=== PATIENT | female | born 1970 | race Caucasian/White ===

== ENCOUNTER 2019-01-21 12:45 | Outpatient (REF) | payer MEDICAID, SELFPAY ==
[2019-01-21 21:20] LABS: Abs Immature Grans 0.02 k/cumm (0.0-0.09); Absolute Basophil Count 0.04 k/cumm (0.0-0.2); Absolute Eosinophil Count 0.15 k/cumm (0.0-0.7); Absolute Lymphocyte Count 1.52 k/cumm (1.2-3.4); Absolute Monocyte Count 0.37 k/cumm (0.11-0.7); Absolute Neutrophil Count 4.83 k/cumm (1.2-6.7); Basophils % 0.6; Eosinophils % 2.2; HCT 44.5 % (36.0-46.0); HGB 14.9 g/dL (12.0-15.5); Immature Grans % 0.3; Lymphocytes % 21.9; Mean Corp. HGB Concentration 33.5 g/dL (32.0-36.0); Mean Corpuscular Hemoglobin 28.7 pg (27.0-33.0); Mean Corpuscular Volume 85.6 fL (80-95); Mean Platelet Volume 11.8 fL (8.0-11.0); Monocytes % 5.3; Neutrophils % 69.7; Platelet Count 246 x1000/uL (130-400); RBC Distribution Width 14.9 % (11.7-14.6); White Blood Cell Count 6.93 k/cumm (4.4-10.8)
[2019-01-21 21:30] LABS: Iron 64 ug/dL (50-175); Total Iron Binding Capacity 293 ug/dL (250-450); Transferrin Sat 22 % (15-50)
[2019-01-21 21:57] LABS: ESR 10 mm/hr (0-20)
[2019-01-21 21:59] LABS: Anion Gap 10.7 mmol/L (3-11); BUN 7 mg/dL (7-18); CO2 28.3 mmol/L (21.0-32.0); CREATININE 0.92 mg/dL (0.55-1.02); Calcium 9.2 mg/dL (8.5-10.1); Chloride 102 mmol/L (98-107); Glucose 131 mg/dL (70-100); Magnesium 1.8 mg/dL (1.8-2.4); Potassium 3.8 mmol/L (3.5-5.1); Sodium 141 mmol/L (136-145); TSH (W/Ref FT4) 1.24 uIU/mL (0.36-3.74); Vitamin B12 344 pg/mL (193-986)
[2019-01-21 22:42] LABS: C-Reactive Protein 1.18 mg/dL (0.0-0.3); Creatine Kinase 68 U/L (26-192)
[2019-01-24 12:16] LABS: Rheumatoid Factor 8 IU/mL (<12.5)
[2019-01-24 15:43] LABS: ANA Interpretation Positive (NEGAT); ANA Titer Pattern 1:320 Speckled
== END 2019-01-21 13:05 ==
LOC: NCHCN 12:45
PROVIDERS: PCP Family Medicine; Visit Provider Nurse Practitioner Family
DX: R51 Headache (principal); M54.9 Dorsalgia, unspecified; K30 Functional dyspepsia; M25.50 Pain in unspecified joint; R53.83 Other fatigue; R25.2 Cramp and spasm; J44.9 Chronic obstructive pulmonary disease, unspecified; F17.200 Nicotine dependence, unspecified, uncomplicated
CPT/HCPCS: 80048; 82550; 85652; 82607; 83540; 83550; 83735; 84443; 85025; 86038; 86140; 86431

== ENCOUNTER 2019-02-04 13:51 | Outpatient (REF) | payer MEDICAID, SELFPAY ==
[2019-02-04 21:19] LABS: Hemoglobin A1C 5.6 % (4.5-6.2)
[2019-02-08 10:33] LABS: SS-B (La) Ab, IgG 3.4 Units (<20)
[2019-02-08 10:40] LABS: SS-A Antibody 1.8 Units (<20)
[2019-02-08 11:07] LABS: dsDNA Ab, IgG <12.3 IU/mL (<30)
[2019-02-08 12:10] LABS: RNP Ab, IgG 3.2 Units (<20); Sm (Smith) Ab, IgG 1.6 Units (<20)
== END 2019-02-04 14:11 ==
LOC: NCHCN 13:51
PROVIDERS: PCP Family Medicine; Visit Provider Nurse Practitioner Family
DX: F32.9 Major depressive disorder, single episode, unspecified (principal); R76.0 Raised antibody titer; R51 Headache; K30 Functional dyspepsia; J44.9 Chronic obstructive pulmonary disease, unspecified; F17.200 Nicotine dependence, unspecified, uncomplicated; M54.9 Dorsalgia, unspecified; M25.50 Pain in unspecified joint
CPT/HCPCS: 83036; 86225; 86235

== ENCOUNTER 2019-03-21 00:12 | Outpatient (CLI) | payer MEDICAID, SELFPAY ==
--- NOTE | 2019-03-21 08:00 | PFT_ITS ---
DATE: MARCH 21, 2019 REQUESTING PROVIDER: Johanna Cartagena N.P. INTERPRETATION: SPIROMETRY: Spirometry shows mild obstructive airways disease with no significant bronchodilator response. LUNG VOLUMES: Lung volumes show no evidence of restriction. DIFFUSION CAPACITY: Mildly reduced even when corrected to alveolar volume. AIRWAY RESISTANCE: Elevated. IMPRESSION: Mild obstructive airways disease with no significant bronchodilator response. This is associated with mild diffusion defect. Clinical correlation recommended.
[2019-03-21] MEDS: Albuterol HFA 18 GM 200 PUFF INH IH (13:56)
[2019-03-21] MEDS: Inhaler, Assist Device 1 EACH MC (13:56)
== END 2019-03-21 00:32 ==
PROVIDERS: PCP Nurse Practitioner Family; Visit Provider Nurse Practitioner Family
DX: J44.9 Chronic obstructive pulmonary disease, unspecified (principal); J45.909 Unspecified asthma, uncomplicated; F17.210 Nicotine dependence, cigarettes, uncomplicated
CPT/HCPCS: 94060; 94150; 94726; 94729

== ENCOUNTER 2019-05-19 12:41 | Outpatient (REF) | payer MEDICAID, SELFPAY ==
--- NOTE | 2019-05-19 11:45 | PAPFT_PTH ---
PATIENT: Jud Roberson LOC: [facility] / [facility] U#:[id number] AGE/SX: 48/F ROOM: RE05/19/[address]: Alicia Page : 1970 BED: DIS: 05/19/2019 SPEC #: [id number] RECD: 05/20/19 16:26 STATUS: NATALEE REQ #: [id number] DAINA: 05/19/19 11:[address]: Alicia Page DEPT: [facility] Cytology RECD BY: Suzie Mast ENTERED: 05/20/19 16:27 SP TYPE: PAPFT OTHR DR: Johanna Cartagena Tissues: 1 - CX/ENDOCX FOR PAP SMEARS Procedures: PAP THIN PREP/[facility] Screening HPV DNA PROBE Comments: [id number]
== END 2019-05-19 13:01 ==
LOC: NCHCN 12:41
PROVIDERS: PCP Nurse Practitioner Family; Visit Provider Family Medicine
DX: Z12.4 Encounter for screening for malignant neoplasm of cervix (principal); Z01.419 Encounter for gynecological examination (general) (routine) without abnormal findings
CPT/HCPCS: 88142; 87624

== ENCOUNTER 2019-11-22 01:16 | Outpatient (CLI) | payer MEDICAID, SELFPAY ==
--- NOTE | 2019-11-22 09:30 | DI.RAD_ITS ---
EXAM: XR FOOT LT COMPLETE CLINICAL HISTORY: JOINT PAIN,M25.50,ELEVATED RAVEN TITER,R76.0. TECHNIQUE: 2D digital imaging was performed. COMPARISON: No exams were available for comparison FINDINGS: BONES: No acute fracture is present. No bony destructive lesion is seen. There is a small plantar cholo caneal spur. Small enthesophyte is seen at the Achilles insertion site. JOINTS: No dislocation present. The joint spaces are unremarkable. SOFT TISSUE: Normal. IMPRESSION: Unremarkable radiographs of the left foot. DATA REPOSITORY: RADIATION DOSE DELIVERED:
--- NOTE | 2019-11-22 09:40 | DI.RAD_ITS ---
EXAM: XR HAND LT COMPLETE CLINICAL HISTORY: JOINT, PAIN, M25.50,ELEVATED RAVEN TITER, R76.0. TECHNIQUE: 2D digital imaging was performed. COMPARISON: No exams were available for comparison FINDINGS: BONES: No acute fracture is present. No bony destructive lesion is seen. JOINTS: No dislocation present. Unremarkable SOFT TISSUE: Normal. IMPRESSION: Unremarkable radiographs of the left hand. DATA REPOSITORY: RADIATION DOSE DELIVERED:
--- NOTE | 2019-11-22 09:40 | DI.RAD_ITS ---
EXAM: XR FOOT RT COMPLETE CLINICAL HISTORY: JOINT PAIN,M25.50,ELEVATED RAVEN TITER,R76.0. TECHNIQUE: 2D digital imaging was performed. COMPARISON: No exams were available for comparison FINDINGS: BONES: No acute fracture is present. No bony destructive lesion is seen. Hypertrophic changes are se en at the talonavicular joint. The joint spaces are otherwise unremarkable. There is a large spur a t the plantar surface of the calcaneus. JOINTS: No dislocation present. SOFT TISSUE: Normal. IMPRESSION: Mild degenerative changes of the foot. DATA REPOSITORY: RADIATION DOSE DELIVERED:
--- NOTE | 2019-11-22 09:41 | DI.RAD_ITS ---
EXAM: XR HAND RT COMPLETE CLINICAL HISTORY: JOINT PAIN,M25.50, ELEVATED RAVEN TITER,R76.0. TECHNIQUE: 2D digital imaging was performed. COMPARISON: No exams were available for comparison FINDINGS: BONES: No acute fracture is present. No bony destructive lesion is seen. JOINTS: No dislocation present. Unremarkable. SOFT TISSUE: Normal. The patient was unable to remove the jewelry. IMPRESSION: Unremarkable radiographs of the right hand. DATA REPOSITORY: RADIATION DOSE DELIVERED:
== END 2019-11-22 01:36 ==
PROVIDERS: PCP Family Medicine; Visit Provider Family Medicine
DX: M25.541 Pain in joints of right hand (principal); R76.0 Raised antibody titer; M25.542 Pain in joints of left hand; M19.071 Primary osteoarthritis, right ankle and foot; M25.572 Pain in left ankle and joints of left foot
CPT/HCPCS: 73130; 73630

== ENCOUNTER 2019-11-22 01:17 | Outpatient (CLI) | payer MEDICAID, SELFPAY ==
--- NOTE | 2019-11-22 09:29 | DI.RAD_ITS ---
EXAM: XR CHEST 2V PA LATERAL CLINICAL HISTORY: ASTHMA,J45.909 TECHNIQUE: 2D digital imaging was performed. COMPARISON: No exams were available for comparison FINDINGS: MEDIASTINUM: Normal. HEART: Normal. PULMONARY VASCULATURE: Normal. LUNGS: Clear. Moderately hyperinflated with flattened diaphragms suggesting COPD. PLEURAL SPACE: No pleural effusion or pneumothorax. BONE:Within normal limits for the patient's age. OTHER FINDINGS:Normal. IMPRESSION: Findings suggestive of COPD. DATA REPOSITORY: RADIATION DOSE DELIVERED:
== END 2019-11-22 01:37 ==
PROVIDERS: PCP Family Medicine; Visit Provider Internal Medicine
DX: J45.909 Unspecified asthma, uncomplicated (principal)
CPT/HCPCS: 71046

== ENCOUNTER 2020-08-08 16:58 | Outpatient (REF) | payer MEDICAID, SELFPAY ==
[2020-08-08 13:42] LABS: HCT 41.3 % (36.0-46.0); HGB 13.5 g/dL (11.2-15.7); MCH 27.8 pg (27.0-33.0); MCHC 32.7 % (32.0-36.0); MPV 11.6 fL (8.0-11.0); Platelet Count 248 10^3/uL (130-400); RBC 4.86 10^6/uL (3.93-5.22); RDW 15.6 % (11.7-14.6); RDW-SD 47.8 fL; WBC 8.15 10^3/uL (4.4-10.8)
[2020-08-08 13:55] LABS: ALT 26 U/L (14-59); AST 12 U/L (15-37); Albumin 3.6 g/dL (3.4-5.0); Alkaline Phosphatase 98 U/L (46-116); Anion Gap 10.5 mmol/L (3-11); BUN 18 mg/dL (7-18); Bilirubin, Total 0.3 mg/dL (0.2-1.0); CO2 24.5 mmol/L (21.0-32.0); CREATININE 0.9 mg/dL (0.55-1.02); Calcium 8.9 mg/dL (8.5-10.1); Calculated LDL 156 mg/dL (<100); Chloride 108 mmol/L (98-107); Cholesterol 226 mg/dL (<200); Glucose 90 mg/dL (74-106); HDL Cholesterol 37 mg/dL (40-60); Potassium 3.8 mmol/L (3.5-5.1); Sodium 143 mmol/L (136-145); Total Protein 7.1 g/dL (6.4-8.2); Triglyceride 169 mg/dL (<150)
[2020-08-09 04:21] LABS: Vitamin D 25 Total 12.8 ng/mL (30-100)
== END 2020-08-08 16:59 | disposition home or self-care (01) ==
LOC: NCHCN 16:58
PROVIDERS: PCP Family Medicine; Visit Provider Family Medicine
DX: F32.9 Major depressive disorder, single episode, unspecified (principal); R53.83 Other fatigue; R25.2 Cramp and spasm; F17.200 Nicotine dependence, unspecified, uncomplicated; K30 Functional dyspepsia; R79.89 Other specified abnormal findings of blood chemistry; E55.9 Vitamin D deficiency, unspecified
CPT/HCPCS: 80053; 80061; 82306; 85027

== ENCOUNTER 2022-06-26 01:20 | Outpatient (CLI) | payer MEDICAID, SELFPAY ==
--- NOTE | 2022-06-26 15:15 | DI.CTLCSR_ITS ---
Exam(s) CT CHEST LUNG CANCER SCREEN EXAM: CT CHEST LUNG CANCER SCREEN CLINICAL HISTORY: SMOKER, F17.200 TECHNIQUE: Imaging Protocol: Axial computed tomography images with coronal and sagittal reformatted images were created and reviewed. Low dose screening protocol. COMPARISON: CR XR CHEST 2V PA LATERAL from 11/22/2019 FINDINGS: Tracheobronchial tree: No bronchiectasis or mucus plugging.. Mediastinum and Evon: No dominant adenopathy or fluid collection. Pulmonary parenchyma: Linear atelectasis or scarring at the lung apex. No consolidation or dominant measurable mass. A moderate emphysematous changes, greater at the upper lobes.. Lung Nodules: Calcified granuloma left lower lobe. Pleura: No effusion. No pneumothorax. Heart: The heart is not dilated. No coronary artery calcifications are seen. Aorta: Thoracic aorta non-dilated. Upper abdomen: Unremarkable. Bones: Unremarkable for age. Soft Tissues: Unremarkable. IMPRESSION: No suspicious pulmonary nodules. Category Lung RADS Cat 1 - Negative: No nodules and definitely benign nodules Lung-RADS 1.0 CATEGORIES: Category 0 - Prior chest CT exam(s) being located for comparison. Category 1 - Annual screening in 12 months. No nodules or definitely benign nodules. Category 2 - Annual screening in 12 months. Benign appearance. Nodules with low likelihood of becomin g active cancer. Category 3 - 6-month follow-up. Probably benign. Short-term follow-up suggested. Nodules with low lik elihood of becoming active cancer. Category 4A - 3-month follow-up and CT/PET if >8 mm in size. Suspicious finding. Findings which requi re additional testing. Category 4B - Findings which require additional testing and tissue sampling. Category 4X - Category 3 or 4 nodules with additional features or imaging findings that increases the suspicion of malignancy. Modifier S- Potentially clinically significant findings (non lung cancer) RADIATION DOSE DELIVERED: 72.44mGy.cm Total DLP DATA REPOSITORY: All CT scans at this facility are submitted to the National Radiology Data Registry (NRDR) Dose Index Registry (DIR) with the [employer] ([employer]). RADIATION OPTIMIZATION: All CT scans at this facility use at least one of these dose optimization te chniques: automated exposure control; mA and/or kV adjustment per patient size (includes targeted exa ms where dose is matched to clinical indication); or iterative reconstruction.
== END 2022-06-26 01:40 ==
PROVIDERS: PCP Family Medicine; Visit Provider Family Medicine
DX: Z12.2 Encounter for screening for malignant neoplasm of respiratory organs (principal); F17.210 Nicotine dependence, cigarettes, uncomplicated; J43.8 Other emphysema; J98.4 Other disorders of lung
CPT/HCPCS: 71271

== ENCOUNTER → 2023-01-02 10:43 | Outpatient (CLI) | payer MEDICAID, SELFPAY ==
--- NOTE | 2023-01-02 | DI.RAD_ITS ---
Exam(s) XR FINGER RT LITTLE EXAM: XR FINGER RT LITTLE CLINICAL HISTORY: RT FINGER PAIN M79.644 ? FRACTURE. TECHNIQUE: 2D digital imaging was performed of the right finger. Three views were obtained. PA/AP, oblique, and lateral views were obtained. COMPARISON: CR XR HAND RT COMPLETE from 11/22/2019 FINDINGS: BONES: No acute fracture is present. No bony destructive lesion is seen. JOINTS: No dislocation present. SOFT TISSUE: Normal. IMPRESSION: No evidence of acute fracture, dislocation, or subluxation. DATA REPOSITORY: RADIATION DOSE DELIVERED:
--- NOTE | 2023-01-02 18:24 | DI.VRAD_ITS ---
PROCEDURE INFORMATION: Exam: XR Left Finger(s) Exam date and time: 01/02/2023 6:06 PM Age: 52 years old Clinical indication: Other: Pain, ? fracture TECHNIQUE: Imaging protocol: Radiologic exam of the left fingers. Views: Minimum 2 views. COMPARISON: No relevant prior studies available. FINDINGS: Bones/joints: There are no acute displaced fractures or subluxations. Osseous mineralization is normal. There are no inflammatory osseous erosive changes. The joint spaces are maintained without degenerative changes. No focal osseous lesions are identified. Soft tissues: There is no soft tissue swelling or soft tissue air. IMPRESSION: No acute displaced fractures or subluxations identified. Dictated and Authenticated by: Livan Carrasco MD. Ordering:ARCHIE Beltran MD
== END ==
PROVIDERS: PCP Family Medicine; Visit Provider Physician Assistant Medical
DX: M79.644 Pain in right finger(s) (principal)
CPT/HCPCS: 73140

== ENCOUNTER 2023-02-20 21:36 | Outpatient (REF) | payer MEDICAID, SELFPAY ==
[2023-02-20 21:10] LABS: HCT 41.7 % (36.0-46.0); HGB 13.8 g/dL (11.2-15.7); MCH 28.3 pg (27.0-33.0); MCHC 33.1 % (32.0-36.0); MCV 86 fL (80-95); MPV 11.3 fL (8.0-11.0); Platelet Count 282 10^3/uL (130-400); RBC 4.87 10^6/uL (3.93-5.22); RDW 13.9 % (11.7-14.6); RDW-SD 43.8 fL; WBC 7.99 10^3/uL (4.4-10.8)
[2023-02-20 21:35] LABS: ALT 13 U/L (14-59); AST 8 U/L (15-37); Albumin 3.9 g/dL (3.4-5.0); Alkaline Phosphatase 103 U/L (46-116); Anion Gap 11.9 mmol/L (3-11); BUN 4 mg/dL (7-18); Bilirubin, Total 0.4 mg/dL (0.2-1.0); CO2 26.1 mmol/L (21.0-32.0); CREATININE 0.8 mg/dL (0.55-1.02); Calcium 9.3 mg/dL (8.5-10.1); Calculated LDL 128 mg/dL (<100); Chloride 104 mmol/L (98-107); Cholesterol 190 mg/dL (<200); Estimated GFR 89.15 (mL/min/1.73m2); Glucose 96 mg/dL (74-106); HDL Cholesterol 41 mg/dL (40-60); Potassium 3.8 mmol/L (3.5-5.1); Sodium 142 mmol/L (136-145); Total Protein 7.5 g/dL (6.4-8.2); Triglyceride 108 mg/dL (<150)
[2023-02-20 22:04] LABS: C-Reactive Protein < 0.05 mg/dL (0.0-0.3)
== END 2023-02-20 21:37 | disposition home or self-care (01) ==
LOC: NCHCN 21:36
PROVIDERS: PCP Family Medicine; Visit Provider Family Medicine
DX: E78.5 Hyperlipidemia, unspecified (principal); E55.9 Vitamin D deficiency, unspecified
CPT/HCPCS: 80053; 80061; 85027; 84443; 86140